=== PATIENT | male | born 1965 | race Caucasian/White ===

== ENCOUNTER 2020-07-11 12:06 | Outpatient (CLI) | payer BC, SELFPAY ==
[2020-07-11 12:35] LABS: Alanine Aminotransferase 46 U/L (4-50); Albumin Level 4.7 g/dL (3.5-5.1); Alkaline Phosphatase 68 U/L (38-126); Anion Gap 7 mmol/L (8-16); Aspartate Amino Transferase 40 U/L (17-59); Bilirubin,Total 1.5 mg/dL (0.2-1.3); Blood Urea Nitrogen 16 mg/dL (9-20); Calcium 9.5 mg/dL (8.4-10.2); Carbon Dioxide 31 mmol/L (22-30); Chloride 101 mmol/L (98-107); Cholesterol 230 mg/dL (0-200); Estimated Glomerular Filt Rate > 60; Glucose 96 mg/dL (75-110); HDL Direct 52 mg/dL; Potassium 4.1 mmol/L (3.4-5.0); Sodium 139 mmol/L (137-145); Triglycerides 147 mg/dL (<150)
[2020-07-11 12:47] LABS: LDL Cholesterol Direct 128 mg/dL
[2020-07-11 13:05] LABS: Prostate Specific Antigen 0.4 ng/mL (< OR = 4.0)
== END 2020-07-11 12:07 | disposition home or self-care (01) ==
LOC: ANHLAB 12:07
PROVIDERS: PCP Internal Medicine; Visit Provider Internal Medicine
DX: Z00.00 Encounter for general adult medical examination without abnormal findings (principal); E78.5 Hyperlipidemia, unspecified; Z12.5 Encounter for screening for malignant neoplasm of prostate
CPT/HCPCS: 36415; 80053; 80061; 84153; G0103

== ENCOUNTER 2020-07-26 14:57 | Outpatient (CLI) | payer BC, SELFPAY ==
--- NOTE | ~2020-07-26 | MR_ITS ---
EXAMINATION: MR lumbar spine wo con DATE: 07/26/2020 15:38 INDICATION: Lumbar radiculopathy. TECHNIQUE: Magnetic resonance imaging (MRI) of the lumbar spine was performed without intravenous con trast. Sequences included sagittal T2-weighted FSE, sagittal T2-weighted FS FSE, sagittal T1-weighted FSE, and axial T2-weighted FSE. COMPARISON: Lumbar spine MRI 02/17/2006 FINDINGS: There is 7 degrees levocurvature of lumbar spine. S1 is a transitional segment. Vertebral b mikayla heights are normal. There is mildly decreased disc height at L5-S1. The distal spinal cord signal intensity is normal. The conus medullaris is at L1. The following disc levels are specifically discu ssed: L1-L2: The disc does not extend beyond the endplate margin. There is no facet joint osteoarthritis. T here is no neural foraminal stenosis. There is no central canal stenosis. L2-L3: The disc does not extend beyond the endplate margin. There is no facet joint osteoarthritis. T here is no neural foraminal stenosis. There is no central canal stenosis. L3-L4: The disc is bulging. There is mild right facet joint osteoarthritis. There is mild bilateral n eural foraminal stenosis. There is mild central canal stenosis. L4-L5: The disc is bulging and has an annular fissure. There is mild bilateral facet joint osteoarthr itis. There is moderate bilateral neural foraminal stenosis. There is mild central canal stenosis. L5-S1: The disc is bulging and has an annular fissure. There is moderate right and severe left facet joint osteoarthritis. There is moderate bilateral neural foraminal stenosis. There is mild central ca nal stenosis. IMPRESSION: 1. Moderate lumbar spondylosis, slightly worsened from 02/17/2006. Reviewed, dictated and finalized at location B. CY SALES DEVELOPMENT ASSOCIATE
== END 2020-07-26 14:58 | disposition home or self-care (01) ==
PROVIDERS: PCP Internal Medicine; Visit Provider Internal Medicine
DX: M47.26 Other spondylosis with radiculopathy, lumbar region (principal)
CPT/HCPCS: 72148

== ENCOUNTER 2021-07-15 08:45 | Outpatient (CLI) | payer BC, SELFPAY ==
[2021-07-15 14:47] LABS: Alanine Aminotransferase 55 U/L (4-50); Albumin Level 4.6 g/dL (3.5-5.1); Alkaline Phosphatase 68 U/L (38-126); Anion Gap 8 mmol/L (8-16); Aspartate Amino Transferase 36 U/L (17-59); Blood Urea Nitrogen 15 mg/dL (9-20); Calcium 9.5 mg/dL (8.4-10.2); Carbon Dioxide 29 mmol/L (22-30); Chloride 102 mmol/L (98-107); Cholesterol 217 mg/dL (0-200); Estimated Glomerular Filt Rate > 60; Glucose 97 mg/dL (65-110); HDL Direct 47 mg/dL; Potassium 4.2 mmol/L (3.4-5.0); Sodium 139 mmol/L (137-145); Triglycerides 225 mg/dL (<150)
[2021-07-15 14:56] LABS: LDL Cholesterol Direct 120 mg/dL
[2021-07-15 15:12] LABS: Prostate Specific Antigen 0.7 ng/mL (< OR = 4.0)
== END 2021-07-15 08:46 | disposition home or self-care (01) ==
PROVIDERS: PCP Internal Medicine; Visit Provider Internal Medicine
DX: E78.5 Hyperlipidemia, unspecified (principal); Z12.5 Encounter for screening for malignant neoplasm of prostate
CPT/HCPCS: 36415; 80053; 80061; 84153; G0103

== ENCOUNTER 2021-10-30 12:44 | Outpatient (CLI) | payer BC, SELFPAY ==
--- NOTE | ~2021-10-30 | XR_ITS ---
EXAMINATION: XR lg joint inject/asp w image DATE: 10/30/2021 13:58 INDICATION: Left hip arthritis. TECHNIQUE: A time-out was performed to verify the patient's name, date of , and procedure to b e performed. The procedure including the risks, benefits, and alternatives was discussed with the pat ient. Risks discussed included bleeding and infection. The patient understood the risks and agreed to proceed. The skin overlying the left hip joint was prepped and draped in usual sterile fashion. An esthetic was administered with 1% lidocaine subcutaneously. A 22 G needle was advanced under fluoros copic guidance into the joint. Injection of 1 mL of Omnipaque 240 confirmed intra-articular position of the needle. Subsequently, injectate consisting of 2 mL 0.5% bupivacaine and 2 mL 40 mg/mL Depo-M edrol was instilled. The needle was removed and the entry site was cleaned and dressed. There were no immediate complications. Fluoroscopy exposure time was 0.0 minutes. The total number of images was 2. FINDINGS: Real-time fluoroscopy demonstrates the needle in the left hip joint. Patient's pain prior t o procedure:12/22. Patient's pain following the procedure: 10/24. IMPRESSION: 1. Fluoroscopy guided left hip joint injection of local anesthetic and steroid with decrease in the p atient's presenting pain. Reviewed, dictated and finalized at location A. OR ENVIRONMENTAL TECHNICIAN IMPRESSION: 1. Fluoroscopy guided left hip joint injection of local anesthetic and steroid with decrease in the patient's presenting pain.
== END 2021-10-30 12:45 | disposition home or self-care (01) ==
PROVIDERS: PCP Internal Medicine; Visit Provider Nurse Practitioner Family
DX: M16.12 Unilateral primary osteoarthritis, left hip (principal)
CPT/HCPCS: 20610; 77002; J1030; Q9966

== ENCOUNTER 2022-02-11 10:36 | Outpatient (CLI) | payer BC, SELFPAY ==
--- NOTE | ~2022-02-11 | XR_ITS ---
EXAMINATION: XR lg joint inject/asp w image DATE: 02/11/2022 11:25 INDICATION: Left hip arthritis. TECHNIQUE: A time-out was performed to verify the patient's name, date of , and procedure to b e performed. The procedure including the risks, benefits, and alternatives was discussed with the pat ient. Risks discussed included bleeding and infection. The patient understood the risks and agreed to proceed. The skin overlying the left hip joint was prepped and draped in usual sterile fashion. An esthetic was administered with 1% lidocaine subcutaneously. A 22 G needle was advanced under fluoros copic guidance into the joint. Subsequently, injectate consisting of 2 mL 0.5% bupivacaine and 1 mL 80 mg/mL Depo-Medrol was instilled. The needle was removed and the entry site was cleaned and dresse d. There were no immediate complications. Fluoroscopy exposure time was 0.1 minutes. The total numbe r of images was 1. FINDINGS: Real-time fluoroscopy demonstrates the needle in the left hip joint. Patient's pain prior t o procedure:11/21. Patient's pain following the procedure: 11/21. IMPRESSION: 1. Fluoroscopy guided left hip joint injection of local anesthetic and steroid. Reviewed, dictated and finalized at location A.
== END 2022-02-11 10:37 | disposition home or self-care (01) ==
LOC: ANHIMG 10:37
PROVIDERS: PCP Internal Medicine; Visit Provider Nurse Practitioner Family
DX: M16.12 Unilateral primary osteoarthritis, left hip (principal)
CPT/HCPCS: 20610; 77002; J1040

== ENCOUNTER 2022-04-30 12:42 | Outpatient (CLI) | payer BC, SELFPAY ==
--- NOTE | ~2022-04-30 | US_ITS ---
EXAMINATION:US venous doppler LE BI INDICATION:Acute pulmonary embolism. History of DVT. TECHNIQUE: Multiple grayscale, color flow and Doppler images of the right and left lower extremity de ep venous systems were obtained and reviewed. COMPARISON:No prior studies for comparison. FINDINGS: The common femoral, superficial femoral and popliteal veins demonstrate normal respiratory variation, augmentation and compressibility. Color flow is also seen within the posterior tibial, pe roneal, greater saphenous and profunda veins. IMPRESSION: 1: No lower extremity deep venous thrombosis. Reviewed, dictated and finalized at location B.
== END 2022-04-30 12:43 | disposition home or self-care (01) ==
LOC: ANHIMG 12:45
PROVIDERS: PCP Internal Medicine; Visit Provider Internal Medicine
DX: Z86.718 Personal history of other venous thrombosis and embolism (principal)
CPT/HCPCS: 93970

== ENCOUNTER 2022-07-22 07:24 | Outpatient (CLI) | payer BC, SELFPAY ==
[2022-07-22 07:49] LABS: Alanine Aminotransferase 57 U/L (6-50); Albumin Level 4.9 g/dL (3.5-5.1); Alkaline Phosphatase 80 U/L (38-126); Anion Gap 11 mmol/L (8-16); Aspartate Amino Transferase 41 U/L (17-59); Blood Urea Nitrogen 13 mg/dL (9-20); Calcium 9.1 mg/dL (8.4-10.2); Carbon Dioxide 28 mmol/L (22-30); Chloride 101 mmol/L (98-107); Cholesterol 217 mg/dL (0-200); Estimated Glomerular Filt Rate > 60; Glucose 98 mg/dL (65-110); HDL Direct 54 mg/dL; Sodium 140 mmol/L (137-145); Triglycerides 271 mg/dL (<150)
[2022-07-22 08:00] LABS: LDL Cholesterol Direct 106 mg/dL
[2022-07-22 08:19] LABS: Prostate Specific Antigen 0.6 ng/mL (< OR = 4.0)
== END 2022-07-22 07:25 | disposition home or self-care (01) ==
LOC: ANHLAB 07:26
PROVIDERS: PCP Internal Medicine; Visit Provider Internal Medicine
DX: Z00.00 Encounter for general adult medical examination without abnormal findings (principal); E78.5 Hyperlipidemia, unspecified; Z12.5 Encounter for screening for malignant neoplasm of prostate
CPT/HCPCS: 36415; 80053; 80061; 84153; G0103

== ENCOUNTER 2022-12-24 09:21 | Emergency (ER) | payer BC, SELFPAY ==
--- NOTE | ~2022-12-24 | XR_ITS ---
XR lumbar spine 2-3V 12/24/2022 11:34 Indication: Low back pain Procedure: 3 views lumbar spine Comparison: 05/22/2017 Findings: Vertebral body heights are maintained. There is a transitional L5 vertebra. There is mild d isc narrowing at L4-5. Pedicles intact. Sacral foramen are symmetric. There are small marginal osteop hytes. No evidence for spondylolisthesis. Impression: 1: Stable mild lumbar spondylosis. Reviewed, dictated and finalized at location B. Impression: 1: Stable mild lumbar spondylosis.
[2022-12-24 09:47] VITALS: BP 143/88; PULSE 73; RESP 16; TEMP 37; O2SAT 99
--- NOTE | 2022-12-24 12:23 | ED.BACK ---
HPI - Back Pain/Injury General Chief Complaint: Back Pain/Injury Stated Complaint: back pain Time Seen by Provider: 12/24/22 11:03 History of Present Illness HPI Narrative: Patient is a 57-year-old male who presents ER with low back pain. Reports 6 days ago he was loading a car when he felt a sudden pain in his right low back. He has been taking ibuprofen 800 mg to help his discomfort but has not yet gone away. No lower extremity numbness or weakness. No difficulty with urination/defecation. No fevers or chills or sweats. No additional concerns at this time. Related Data Home Medications Medication Instructions Recorded Confirmed ibuprofen 800 mg tablet 800 mg PO TID 12/24/22 Allergies Allergy/AdvReac Type Severity Reaction Status Date / Time No Known Allergies Allergy Mild Verified 12/24/22 11:14 Review of Systems Review of Systems: All systems reviewed & are unremarkable except as noted in HPI and below Constitutional: Constitutional: Denies chills and Denies fever(s) Cardiovascular: Cardiovascular: Denies chest pain, Denies radiating jaw, neck or arm pain and Denies slow heart rate Gastrointestinal: Gastrointestinal: Denies abdominal pain, Denies nausea and Denies vomiting Comments: No fecal incontinence Genitourinary: Genitourinary: Denies urinary frequency and Denies urinary incontinence Musculoskeletal: Musculoskeletal: Reports back pain, Denies arthralgias and Denies joint swelling Neurologic: Denies focal weakness and Denies numbness PMFSH Past Medical History Medical History Benign prostatic hyperplasia without lower urinary tract symptoms Chronic left hip pain Chronic midline low back pain Clotting disorder COVID-19 Degenerative joint disease (DJD) of hip Encounter for preventative adult health care examination Essential (primary) hypertension Hip impingement syndrome Left knee pain Lumbar radiculopathy Other hyperlipidemia Pneumonia due to COVID-19 virus Sleep apnea, unspecified Surgical History Surgical History History of back surgery History of cholecystectomy Family History Family History Mother Patient's mother is in good health Father Patient's father is in good health Heart disease Sibling Patient's sister is in good health Grandparent Carcinoma of colon, Onset Age: 83 Social History Social History (Updated 08/06/22 @ 13:09 by Colette Marks MA) Smoking packs per day: 1 Smoking cigarettes per day: 20.0 Years smoked: 20 Smoking pack-years: 20.00 Smoking status: Former smoker Second hand tobacco smoke exposure: No Alcohol intake: current Alcohol use details: social Substance use: never Substance use type: does not use Lack of Transportation: No Lack of Food: Never True Current Housing: I Have Housing Concerned About Future Housing: No Difficulty Paying Gas/Electric Bills: No Difficulty Paying for Meds: No Currently Unemployed: No Education: Trade/Vocational Certificate Difficulty w/ Childcare or Family Care: No Exam Narrative: GENERAL: Well-appearing, well-nourished, and in no acute distress. HEAD: Normocephalic, atraumatic. CHEST: Clear to auscultation. No respiratory distress. HEART: Regular rate and rhythm. No murmur heard. Normal peripheral pulses. Back: No reproducible midline T/L-spine tenderness. There is mild right-sided paraspinal muscular tenderness at L4 without palpable spasm. EXTREMITIES: Normal range of motion. No edema. Ambulates without difficulty. SKIN: Warm, dry, no rash. NEURO: Alert and oriented x3. PSYCH: Normal mood and affect. Course Course Emergency Course: Patient resting comfortably. Informed of imaging results. Discussed continued treatment with NSAIDs at home and we will add on muscle relaxers. [place]
== END 2022-12-24 12:32 | disposition home or self-care (01) ==
PROVIDERS: Emergency Provider Emergency Medicine; PCP Nurse Practitioner
DX: S39.012A Strain of muscle, fascia and tendon of lower back, initial encounter (principal); N40.0 Benign prostatic hyperplasia without lower urinary tract symptoms; I10 Essential (primary) hypertension; G47.30 Sleep apnea, unspecified; M16.9 Osteoarthritis of hip, unspecified; Z87.01 Personal history of pneumonia (recurrent); Z86.16 Personal history of COVID-19; Z90.49 Acquired absence of other specified parts of digestive tract; X50.0XXA Overexertion from strenuous movement or load, initial encounter
CPT/HCPCS: 72100; 99283

== ENCOUNTER 2023-01-09 08:49 | Outpatient (CLI) | payer BC, SELFPAY ==
[2023-01-09 09:27] LABS: Cholesterol 187 mg/dL (0-200); HDL Direct 51 mg/dL; Triglycerides 94 mg/dL (<150)
[2023-01-09 09:37] LABS: LDL Cholesterol Direct 100 mg/dL
== END 2023-01-09 08:50 | disposition home or self-care (01) ==
PROVIDERS: PCP Nurse Practitioner; Visit Provider Nurse Practitioner
DX: E78.5 Hyperlipidemia, unspecified (principal)
CPT/HCPCS: 36415; 80061

== ENCOUNTER 2023-07-08 07:34 | Outpatient (CLI) | payer BC, SELFPAY ==
[2023-07-08 08:03] LABS: Hematocrit 43.9 % (42.0-52.0); Hemoglobin 14.7 g/dL (14.0-18.0); Mean Corpuscular HGB Conc 33.5 g/dl (32-36); Mean Corpuscular Hemoglobin 31.3 pg (26-34); Mean Corpuscular Volume 93.6 fl (80-100); Mean Platelet Volume 9.1 fl (7.4-10.4); Platelet Count Result 271 k/mm3 (150-375); Red Blood Count 4.69 M/mm3 (4.6-6.20); Red Cell Distribution Width 12.6 % (11.5-14.5)
[2023-07-08 08:18] LABS: Alanine Aminotransferase 35 U/L (6-50); Albumin Level 4.5 g/dL (3.5-5.1); Alkaline Phosphatase 72 U/L (38-126); Anion Gap 4 mmol/L (8-16); Aspartate Amino Transferase 27 U/L (17-59); Blood Urea Nitrogen 17 mg/dL (9-20); Calcium 9.1 mg/dL (8.4-10.2); Carbon Dioxide 29 mmol/L (22-30); Chloride 104 mmol/L (98-107); Cholesterol 183 mg/dL (0-200); Estimated Glomerular Filt Rate > 60; Glucose 93 mg/dL (65-110); HDL Direct 48 mg/dL; Potassium 4.2 mmol/L (3.4-5.0); Sodium 137 mmol/L (137-145); Triglycerides 138 mg/dL (<150)
[2023-07-08 08:25] LABS: LDL Cholesterol Direct 101 mg/dL
[2023-07-08 08:43] LABS: Prostate Specific Antigen 0.5 ng/mL (< OR = 4.0)
== END 2023-07-08 07:35 | disposition home or self-care (01) ==
LOC: ANHLAB 07:35
PROVIDERS: PCP Nurse Practitioner; Visit Provider Nurse Practitioner
DX: Z00.00 Encounter for general adult medical examination without abnormal findings (principal); Z12.5 Encounter for screening for malignant neoplasm of prostate
CPT/HCPCS: 36415; 80053; 80061; 84153; 85027; G0103

== ENCOUNTER 2024-11-13 09:21 | Emergency (ER) | payer BC, SELFPAY ==
[2024-11-13 09:28] VITALS: BP 143/87; PULSE 67; RESP 18; TEMP 36.4; O2SAT 98
[2024-11-13 11:13] VITALS: BP 121/86; PULSE 64; RESP 19; O2SAT 100
--- NOTE | 2024-11-13 11:31 | ED.BACK ---
HPI - Back Pain/Injury General Chief Complaint: Back Pain/Injury Stated Complaint: LOWER BACK PAIN Time Seen by Provider: 11/13/24 11:04 Source: patient Mode of arrival: ambulatory Limitations: no limitations History of Present Illness HPI Narrative: 59 years old white male came to the ED with his by private car complaining of lower back pain started 5 days ago 1 day after trying to adjust backyard hose, and working at the backyard including lifting and pushing, 1 week prior to that patient was shoveling a lot of snow. Patient report the pain is sharp, stabbing, no radiation, no focal neuro deficit. Worse with certain movement and position, better laying down on 1 side of his body. He denies any fever, chills, nausea, vomiting Related Data Home Medications ?Medication ?Instructions ?Recorded ?Confirmed ?Last Taken ?Type ibuprofen 800 mg tablet 800 mg PO TID 12/24/22 11/13/24 Unknown History cyclobenzaprine 10 mg tablet 10 mg PO ONCE back pain 11/13/24 11/13/24 11/13/24 History Allergies Allergy/AdvReac Type Severity Reaction Status Date / Time No Known Allergies Allergy Mild Verified 11/13/24 09:29 Review of Systems Review of Systems: All systems reviewed & are unremarkable except as noted in HPI and below PMFSH Past Medical History Medical History Clotting disorder Degenerative joint disease (DJD) of hip Hip impingement syndrome Pneumonia due to COVID-19 virus COVID-19 Left knee pain Chronic left hip pain Lumbar radiculopathy Benign prostatic hyperplasia without lower urinary tract symptoms Chronic midline low back pain Essential (primary) hypertension Other hyperlipidemia Sleep apnea, unspecified Encounter for preventative adult health care examination Surgical History Surgical History History of back surgery History of cholecystectomy Family History Family History Mother Patient's mother is in good health Father Patient's father is in good health Heart disease Sibling Patient's sister is in good health Grandparent Carcinoma of colon, Onset Age: 83 Social History Social History Social History: Caffeine- daily Smoking packs per day: 1 Smoking cigarettes per day: 20.0 Years smoked: 20 Smoking pack-years: 20.00 Smoking status: Former smoker Second hand tobacco smoke exposure: No Smoking end date: 09/14/05 Alcohol intake: current Alcohol use details: social Substance use: never Substance use type: does not use Lack of Transportation: No Lack of Food: Never True Current Housing: I Have Housing Concerned About Future Housing: No Difficulty Paying Gas/Electric Bills: No Difficulty Paying for Meds: No Currently Unemployed: No Education: Trade/Vocational Certificate Difficulty w/ Childcare or Family Care: No Exam Narrative: General appearance: Well-developed, well-nourished Skin: Normal color Head: Normocephalic, nontraumatic Eyes: Clear conjunctiva ENT: Oropharynx normal, ears normal, nose normal Neck: Supple, nontender Chest and respiratory: Airway patent, no respiratory distress, no accessory muscle use Heart: Regular rate/rhythm Abdomen: Soft, nontender, no organomegaly, quiet bowel sounds Vascular: Normal peripheral pulses, normal capillary refill. Musculoskeletal: Slight tenderness across lumbar area, no bruises no swelling no rash, limited range of motion Neurologic: Alert and oriented ?3, ACCELERATOR TECHNICIAN is normal as tested, no gross motor deficit Course Vital Signs Vital signs: Vital Signs Temperature 36.4 C L 11/13/24 09:28 Pulse Rate 67 11/13/24 09:28 Respiratory Rate 18 11/13/24 09:28 Blood Pressure 143/87 H 11/13/24 09:28 Pulse Oximetry 98 11/13/24 09:28 Oxygen Delivery Room Air 11/13/24 09:28 Temperature 36.4 C L 11/13/24 09:28 Pulse Rate 64 11/13/24 11:13 Respiratory Rate 19 11/13/24 11:13 Blood Pressure 121/86 11/13/24 11:13 Pulse Oximetry 100 11/13/24 11:13 Oxygen Delivery Room Air 11/13/24 09:28 MDM - Back Pain/Injury MDM Narrative Medical decision making narrative: Patient presents with lower back pain status post new physical activities few days prior to that. Vital signs are stable Physical examination consistent with tenderness and limited range of motion at the lumbar area Differential diagnosis musculoskeletal strain/sprain Discharged on anti-inflammatory, muscle relaxant,. Differential Diagnosis Differential diagnosis: Likely other (As above) Critical Care Time Critical Care Time Critical Care Time: No Discharge Plan Discharge Clinical Impression: Lower back pain Patient Disposition: Home, Self-Care Condition: Stable Instructions: Acute Low Back Pain (ED) Additional Instructions: Return if symptoms are worsening , call your family physician for appointment, take Tylenol as as needed for aches and pain, continue home medications. Massage Heating pad Lower back exercise Patient Language: Tajik Prescriptions: New cyclobenzaprine 10 mg tablet 10 mg PO TID PRN (Reason: muscle spasm) Qty: 20 0RF naproxen [Naprosyn] 500 mg tablet 500 mg PO BID PRN (Reason: pain) Qty: 14 0RF No Action ibuprofen 800 mg Tablet 800 mg PO TID cyclobenzaprine 10 mg tablet 10 mg PO ONCE Follow-up/Referrals: Calos Strauss APRN [Primary Care Provider] -
[2024-11-13] MEDS: KETOROLAC (*BKC) 60 MG/2 ML VIAL IM (11:46)
[2024-11-13] MEDS: HYDROcodone/acetaminophen (*CRX) 5-325 MG TABLET 1 TAB PO (11:47)
[2024-11-13] MEDS: diazePAM (*CRX) 5 MG TABLET PO (11:47)
[2024-11-13 11:56] VITALS: BP 131/84; PULSE 70; RESP 19; O2SAT 100
== END 2024-11-13 11:58 | disposition home or self-care (01) ==
PROVIDERS: Emergency Provider Emergency Medicine; PCP Nurse Practitioner
DX: M54.50 Low back pain, unspecified (principal); I10 Essential (primary) hypertension; E78.49 Other hyperlipidemia; N40.0 Benign prostatic hyperplasia without lower urinary tract symptoms; G47.30 Sleep apnea, unspecified; M16.9 Osteoarthritis of hip, unspecified; D68.9 Coagulation defect, unspecified; Z86.16 Personal history of COVID-19; Z87.01 Personal history of pneumonia (recurrent); Z87.891 Personal history of nicotine dependence; Z90.49 Acquired absence of other specified parts of digestive tract
CPT/HCPCS: 96372; 99283; A9270; J1885

== ENCOUNTER 2024-12-17 07:36 | Outpatient (CLI) | payer BC, SELFPAY ==
--- OUTSIDE RECORDS SUMMARY | 2024-12-17 07:42 | XMS_ITS | Clinical Summary ---
Author Organization [facility] Address [facility] [place] [address] Care Team Providers Care Gas Pumping Station Supervisor Name Role Phone Deepak De Leon DO Primary Care Provider [phone] Allergies No known active allergies Medications apixaban 5 MG tablet Take 1 tablet (5 mg total) by mouth 2 (two) times daily. 60 tablet 1 2 Active albuterol sulfate HFA 108 (90 Base) MCG/ACT inhaler Inhale 2 puffs into the lungs every 4 (four) hours as needed for Shortness of breath. 18 g 2 Active dexamethasone 2 MG tablet 3 tablets for 3 days, 2 tablets for 3 days and 1 tablets for 3 days. 18 tablet 2 Active Active Problems Problem Noted Date Diagnosed Date Physical deconditioning 09/28/2021 COVID-19 09/19/2021 Family History Medical History Relation Comments Heart Disease Father Relation Status Comments Father Mother Alive Sister Alive Social History Tobacco Use Types Packs/Day Years Used Date Smoking Tobacco: Former Cigarettes 1 25 0 09/19/1980 - 09/19/2005 Smokeless Tobacco: Never Alcohol Use Standard Drinks/Week Comments Yes 0 (1 standard drink = 0.6 oz pur e alcohol) Twelve pack annually Education Answer Date Recorded What is the highest level of school you have completed or the highest degree you have received? Some college, no degree 09/19/2021 Sex and Gender Information Value Date Recorded Sex Assigned at Not on file Legal Sex Male 8:10 PM CDT Gender Identity Not on file Sexual Orientation Not on file Last Filed Vital Signs Vital Sign Reading Time Taken Comments Blood Pressure 114/68 09/29/2021 8:17 AM BILLING ASSOCIATE Pulse 76 09/29/2021 8:17 AM BILLING ASSOCIATE Temperature 36.7 C (98.1 F) 09/29/2021 8:17 AM BILLING ASSOCIATE Respiratory Rate 18 09/29/2021 8:17 AM BILLING ASSOCIATE Oxygen Saturation 93% 09/29/2021 8:17 AM BILLING ASSOCIATE Inhaled Oxygen Concentration - - Weight 77.4 kg (170 lb 10.2 oz) 09/29/2021 5:00 AM BILLING ASSOCIATE Height 165.1 cm (5' 5 ) 09/27/2021 3:50 PM BILLING ASSOCIATE Body Mass Index 28.4 09/27/2021 3:50 PM BILLING ASSOCIATE Plan of Treatment Health Maintenance Due Date Last Done Comments Colorectal Cancer Screening Colonoscopy (10 Years) 1964 Annual Physical 1967 Hepatitis C 1982 Zoster Vaccines (1 of 2) 2014 DTaP, Tdap and Td Vaccines ( 2 - Td or Tdap) 07/05/2022 07/05/2012 COVID-19 Vaccine ( - 2023-2 5 season) 2024 Influenza Adult (#1) 2024 RSV Immunization or 60+ Years (1 - 1-dose 75+ series) 2039 Meningococcal B Vaccine Aged Out No l onger eligible based on patient's age to complete this topic Meningococcal Vaccine Aged Out No anthony linda eligible based on patient's age to complete this topic Pneumococcal Vaccine: Pediat rics (0 to 5 Years) and At-Risk Patients (6 to 64 Years) Aged Out No longer eligi ble based on patient's age to complete this topic RSV Immunizations Under 20 Months Aged Out No longer eligible based on patient's age to complete this topic Goals Goal Patient Goal Type Associated Problems Recent Progress Patient-Stated? Author Health - patient able to perform ADLs independently General No Jennifer Cesar, RN Insurance [facility] Advance Directives * Full Code (Latest Code Status on File) Date Activated Date Inactivated Comments 09/27/2021 3:49 PM 09/29/2021 8:59 PM * Full Code Date Activated Date Inactivated Comments 09/19/2021 3:31 PM 09/27/2021 3:47 PM Care Teams Gas Pumping Station Supervisor Relationship Specialty Start Date End Date Deepak De Leon DO [address] [place] [id number] PCP - General INTERNAL MEDICINE 09/19/21
[2024-12-17 08:13] LABS: Hematocrit 44.7 % (42.0-52.0); Hemoglobin 15.1 g/dL (14.0-18.0); Mean Corpuscular HGB Conc 33.8 g/dl (32-36); Mean Corpuscular Hemoglobin 31.1 pg (26-34); Mean Corpuscular Volume 92.2 fl (80-100); Platelet Count Result 273 k/mm3 (150-375); Red Blood Count 4.85 M/mm3 (4.6-6.20); Red Cell Distribution Width 12.6 % (11.5-14.5)
[2024-12-17 08:22] LABS: Alanine Aminotransferase 34 U/L (6-50); Albumin Level 4.7 g/dL (3.5-5.1); Alkaline Phosphatase 79 U/L (38-126); Anion Gap 6 mmol/L (4-12); Aspartate Amino Transferase 24 U/L (17-59); Bilirubin,Total 1.2 mg/dL (0.2-1.3); Blood Urea Nitrogen 14 mg/dL (9-20); Calcium 9.2 mg/dL (8.4-10.2); Carbon Dioxide 31 mmol/L (22-30); Chloride 103 mmol/L (98-107); Cholesterol 177 mg/dL (0-200); Estimated Glomerular Filt Rate > 60; Glucose 97 mg/dL (65-110); HDL Direct 54 mg/dL; Sodium 140 mmol/L (137-145); Triglycerides 164 mg/dL (<150)
[2024-12-17 08:34] LABS: LDL Cholesterol Direct 80 mg/dL
[2024-12-17 08:54] LABS: Prostate Specific Antigen 0.5 ng/mL (< OR = 4.0)
== END 2024-12-17 07:37 | disposition home or self-care (01) ==
LOC: ANHLAB 07:40
PROVIDERS: PCP Internal Medicine; Visit Provider Nurse Practitioner
DX: Z00.00 Encounter for general adult medical examination without abnormal findings (principal); E78.5 Hyperlipidemia, unspecified; Z12.5 Encounter for screening for malignant neoplasm of prostate; I10 Essential (primary) hypertension
CPT/HCPCS: 36415; 80053; 80061; 84153; 84443; 85027; G0103

== ENCOUNTER 2025-01-13 13:27 | Outpatient (CLI) | payer BC, SELFPAY ==
--- NOTE | ~2025-01-13 | XR_ITS ---
Lumbosacral Spine: AP and lateral views Clinical History: Pain COMPARISON: 12/24/2022 Findings: The normal lordotic curve is maintained. No fracture or subluxation. Mild degenerative disc changes are present. Moderate facet arthropathy present from L4 through S1. The sacroiliac joints ar e normally outlined. Impression: Degenerative spondylosis, similar to prior exam, moderate in degree from L4 through S1. Reviewed, dictated and finalized at location M. Impression: Degenerative spondylosis, similar to prior exam, moderate in degree from L4 thr ough S1.
--- OUTSIDE RECORDS SUMMARY | 2025-01-14 13:56 | XMS_ITS | Clinical Summary ---
Author Organization [facility] Address [facility] [place] [address] Care Team Providers Care Game Artist Name Role Phone Deepak De Leon DO Primary Care Provider [phone] Allergies No known active allergies Medications apixaban [...] Comments Blood Pressure 114/68 09/29/2021 8:17 AM TRAVEL CLERK Pulse 76 09/29/2021 8:17 AM TRAVEL CLERK Temperature 36.7 C (98.1 F) 09/29/2021 8:17 AM TRAVEL CLERK Respiratory Rate 18 09/29/2021 8:17 AM TRAVEL CLERK Oxygen Saturation 93% 09/29/2021 8:17 AM TRAVEL CLERK Inhaled Oxygen Concentration - - Weight 77.4 kg (170 lb 10.2 oz) 09/29/2021 5:00 AM TRAVEL CLERK Height 165.1 cm (5' 5 ) 09/27/2021 3:50 PM TRAVEL CLERK Body Mass Index 28.4 09/27/2021 3:50 PM TRAVEL CLERK Plan of Treatment Health Maintenance Due Date Last Done Comments Colorectal Cancer Screening Colonoscopy (10 Years) 1964 Annual Physical 1967 Hepatitis C 1982 Pneumococcal Vaccine: 50+ Ye ars (1 of 1 - PCV) 2014 Zoster Vaccines (1 of 2) 2014 DTaP, Tdap and Td Vaccines ( 2 - Td or Tdap) 07/05/2022 07/05/2012 COVID-19 Vaccine (1 - 2023-2 5 season) 2024 RSV Immunization or 60+ Years (1 [...] independently General No Jennifer Cesar, RN Insurance [facility] Advance Directives * Full Code (Latest Code Status on File) Date Activated Date Inactivated Comments 09/27/2021 3:49 PM 09/29/2021 8:59 PM * Full Code Date Activated Date Inactivated Comments 09/19/2021 3:31 PM 09/27/2021 3:47 PM Care Teams Game Artist Relationship Specialty Start Date End Date Deepak De Leon DO [address] [place] [address] PCP - General INTERNAL MEDICINE 09/19/21
== END 2025-01-13 13:28 | disposition home or self-care (01) ==
PROVIDERS: PCP Internal Medicine; Visit Provider Internal Medicine
DX: M47.26 Other spondylosis with radiculopathy, lumbar region (principal)
CPT/HCPCS: 72100

== ENCOUNTER 2025-01-25 12:51 | Outpatient (CLI) | payer BC, SELFPAY ==
--- NOTE | ~2025-01-25 | XR_ITS ---
XR ankle RT 2V Ordering provider: Deepak De Leon DO History: . R52 - Pain, unspecified . Comparison: None. FINDINGS: BONES: No acute fracture or dislocation. JOINT SPACES: Normal. SOFT TISSUES: Normal. Ossification of the insertion of the tendo Achilles. Calcaneal spur. IMPRESSION: No acute osseous abnormality of the right ankle. Reviewed, dictated and finalized at location A.
--- NOTE | ~2025-01-25 | XR_ITS ---
XR tibia fibula RT 2V Ordering provider: Deepak De Leon DO History: . R52 - Pain, unspecified . Comparison: None. FINDINGS: BONES: No acute fracture or dislocation. JOINT SPACES: Normal. SOFT TISSUES: Normal. IMPRESSION: No acute osseous abnormality right leg. Reviewed, dictated and finalized at location A.
--- OUTSIDE RECORDS SUMMARY | 2025-01-25 13:00 | XMS_ITS | Clinical Summary ---
Author Organization [facility] Address [facility] [place] [address] Care Team Providers Care Food Product Inspector Name Role Phone Deepak De Leon DO Primary Care Provider [phone] Allergies No known active allergies Medications apixaban [...] Comments Blood Pressure 114/68 09/29/2021 8:17 AM BUFFER OPERATOR Pulse 76 09/29/2021 8:17 AM BUFFER OPERATOR Temperature 36.7 C (98.1 F) 09/29/2021 8:17 AM BUFFER OPERATOR Respiratory Rate 18 09/29/2021 8:17 AM BUFFER OPERATOR Oxygen Saturation 93% 09/29/2021 8:17 AM BUFFER OPERATOR Inhaled Oxygen Concentration - - Weight 77.4 kg (170 lb 10.2 oz) 09/29/2021 5:00 AM BUFFER OPERATOR Height 165.1 cm (5' 5 ) 09/27/2021 3:50 PM BUFFER OPERATOR Body Mass Index 28.4 09/27/2021 3:50 PM BUFFER OPERATOR Plan of Treatment Health Maintenance Due Date [...] independently General No Jennifer Cesar, RN Insurance [facility] Advance Directives * Full Code (Latest Code Status on File) Date Activated Date Inactivated Comments 09/27/2021 3:49 PM 09/29/2021 8:59 PM * Full Code Date Activated Date Inactivated Comments 09/19/2021 3:31 PM 09/27/2021 3:47 PM Care Teams Food Product Inspector Relationship Specialty Start Date End Date Deepak De Leon DO [address] [place] [address] PCP - General INTERNAL MEDICINE 09/19/21
== END 2025-01-25 12:52 | disposition home or self-care (01) ==
PROVIDERS: PCP Internal Medicine; Visit Provider Internal Medicine
DX: R52 Pain, unspecified (principal)
CPT/HCPCS: 73590; 73600

== ENCOUNTER 2025-02-02 08:55 | Outpatient (CLI) | payer BC, SELFPAY ==
--- NOTE | ~2025-02-02 | MR_ITS ---
MRI of the lumbar spine Clinical History: Radiculopathy Technique: Axial T2-weighted images, and sagittal T1-weighted, T2-weighted, and T2 fat-sat images wer e acquired. COMPARISON: 07/26/2020 Findings: There is no fracture or subluxation of the lumbar spine. Vertebral bodies maintain normal h eight and line. No suspicious bone marrow signal abnormality seen. At L1-L2, there is no disc bulge or herniation. No spinal canal stenosis or neural foraminal narrowin g. At L2-L3, there is minimal disc bulge with moderate facet arthropathy. No central canal stenosis or d efinite neural foraminal narrowing. At L3-L4, there is diffuse disc bulge with superimposed right paracentral disc extrusion. There is mo derate to advanced facet arthropathy. There is moderate to severe spinal canal stenosis, with right l ateral recess stenosis in particular related to the disc extrusion and probable impingement of the de scending right-sided L4-L5 nerve root. There is severe left neural foraminal narrowing, and moderate right neural foraminal narrowing. At L4-L5, there is mild disc bulge with moderate to advanced facet arthropathy. No central canal sten osis. There is severe bilateral neural foraminal narrowing. At L5-S1, there is no disc bulge or herniation. No spinal canal stenosis or definite neural foraminal narrowing. Paravertebral soft tissues are unremarkable. Impression: Right paracentral disc extrusion/herniation at L3-L4, which probably impinges the descending right-si ded L4-L5 nerve root and results in right lateral recess stenosis at this level. There is also modera te to advanced central canal stenosis at this level. Bilateral neural foraminal narrowing at L3-L4 and L4-L5, as detailed above. Reviewed, dictated and finalized at location M. Impression: Right paracentral disc extrusion/herniation at L3-L4, which probably impinges t he descending right-sided L4-L5 nerve root and results in right lateral recess stenosis at this level. There is also moderate to advanced central canal stenos is at this level. Bilateral neural foraminal narrowing at L3-L4 and L4-L5, as detailed above.
== END 2025-02-02 08:56 | disposition home or self-care (01) ==
LOC: GOSHIMG 08:55
PROVIDERS: PCP Internal Medicine; Visit Provider Internal Medicine
DX: M51.26 Other intervertebral disc displacement, lumbar region (principal); M48.061 Spinal stenosis, lumbar region without neurogenic claudication
CPT/HCPCS: 72148

== ENCOUNTER 2025-03-14 09:58 | Outpatient (CLI) | payer BC, SELFPAY ==
--- OUTSIDE RECORDS SUMMARY | 2025-03-14 10:11 | XMS_ITS | Clinical Summary ---
Author Organization [facility] Address [facility] [place] [address] Care Team Providers Care Production Editor Name Role Phone Deepak De Leon DO Primary Care Provider Allergies No known active allergies Medications apixaban [...] Comments Blood Pressure 114/68 09/29/2021 8:17 AM INCOME TAX RETURN PREPARER Pulse 76 09/29/2021 8:17 AM INCOME TAX RETURN PREPARER Temperature 36.7 C (98.1 F) 09/29/2021 8:17 AM INCOME TAX RETURN PREPARER Respiratory Rate 18 09/29/2021 8:17 AM INCOME TAX RETURN PREPARER Oxygen Saturation 93% 09/29/2021 8:17 AM INCOME TAX RETURN PREPARER Inhaled Oxygen Concentration - - Weight 77.4 kg (170 lb 10.2 oz) 09/29/2021 5:00 AM INCOME TAX RETURN PREPARER Height 165.1 cm (5' 5) 09/27/2021 3:50 PM INCOME TAX RETURN PREPARER Body Mass Index 28.4 09/27/2021 3:50 PM INCOME TAX RETURN PREPARER Plan of Treatment Health Maintenance Due Date [...] independently General No Jennifer Cesar, RN Insurance [facility] Advance Directives * Full Code (Latest Code Status on File) Date Activated Date Inactivated Comments 09/27/2021 3:49 PM 09/29/2021 8:59 PM * Full Code Date Activated Date Inactivated Comments 09/19/2021 3:31 PM 09/27/2021 3:47 PM Care Teams Production Editor Relationship Specialty Start Date End Date Deepak De Leon DO [address] [place] [address] PCP - General INTERNAL MEDICINE 09/19/21
[2025-03-14 10:56] LABS: Hematocrit 44.7 % (42.0-52.0); Hemoglobin 14.9 g/dL (14.0-18.0); Mean Corpuscular HGB Conc 33.3 g/dl (32-36); Mean Corpuscular Hemoglobin 31.0 pg (26-34); Mean Corpuscular Volume 93.1 fl (80-100); Platelet Count Result 258 k/mm3 (150-375); Red Blood Count 4.80 M/mm3 (4.6-6.20); White Blood Count 8.6 K/mm3 (4.5-10.0)
[2025-03-14 11:07] LABS: Add Urine Microscopic? YES; Anion Gap 9 mmol/L (4-12); Appearance Urine Clear (Clear); Blood Urea Nitrogen 15 mg/dL (9-20); Calcium 9.6 mg/dL (8.4-10.2); Carbon Dioxide 26 mmol/L (22-30); Chloride 105 mmol/L (98-107); Estimated Glomerular Filt Rate > 60; Glucose 95 mg/dL (65-110); Glucose Urine UA Negative (Negative); Leukocyte Esterase Ur Trace LEU/UL (Negative); Nitrate Urine Negative (Negative); Non Pathogenic Casts 0-2; Potassium 4.4 mmol/L (3.4-5.0); Sodium 140 mmol/L (137-145); Specific Grav Ur 1.006 (1.001-1.035)
[2025-03-14 11:11] LABS: INR 0.9; Prothrombin Time 12.8 Seconds (11.1-14.7)
[2025-03-14 11:12] LABS: Partial Thromboplastin Time 28.1 Seconds (22.3-36.8)
== END 2025-03-14 09:59 | disposition home or self-care (01) ==
LOC: ANHSURGERY 10:02
PROVIDERS: PCP Internal Medicine; Visit Provider Neurological Surgery
DX: M51.26 Other intervertebral disc displacement, lumbar region (principal); Z01.818 Encounter for other preprocedural examination
CPT/HCPCS: 36415; 80048; 81001; 85027; 85610; 85730

== ENCOUNTER 2025-03-31 00:53 | Day surgery (SDC) | payer BC, SELFPAY ==
[2025-03-14 10:09] VITALS: BP 143/92; PULSE 69; RESP 14; TEMP 37.1; O2SAT 99; BMI 30.9
[2025-03-14 10:23] VITALS: BP 129/87
--- NOTE | 2025-03-14 10:25 | PC.NURSE ---
Report to the Outpatient Waiting Room, entrance under the green pavilion located off [facility], at time _10:00am on date __03/31/25 . Planned Procedure Time: ____12:00pm ____.? Time changes happen often and if your time is changed the preop area will call you the afternoon before. - You and your visitor will be asked to self-screen and do not enter if you have any COVID symptoms. Please call surgeon if you need to reschedule. - A mask is optional within the hospital at this time. Patients may have clear liquids (water, carbonated beverages, clear teas, apple juice) until 3 hours prior to surgery with a maximum of 20 ounces. - No food from midnight until time of surgery and no smoking, or chewing tobacco (or any form of nicotine). No chewing gum, candy or mints. (09:00am) Take only the following medications with a SIP of water on the morning of surgery: ____Hydrocodone if needed DO NOT STOP ANY OF YOUR OTHER PRESCRIPTION MEDICATIONS PRIOR TO SURGERY EXCEPT THE FOLLOWING Hold all vitamins and supplements for 3 days per anesthesiologist. Medications to discontinue per physician NONE Date to take last dose__NONE Please no make-up, nail indonesian, hairspray, perfume, deodorant, or body powder the day of surgery.? No jewelry (including any body piercings) or valuables the day of surgery, leave them at home.? Please take a shower or bath the night before, or the morning of, surgery with an antibacterial soap.? Wear comfortable, loose fitting clothing.? - Jewelry must be removed prior to entering the operating room.? Rings and piercings that are not removed may be cut off. - The hospital will not accept responsibility for valuables.? - Please leave all valuables, including medications, at home the day of surgery. If you are going home after surgery, a licensed wheelchair driver must drive you home.? - NO public transportation without another adult if you receive anesthesia. - We recommend that an adult stay with you for 24 hours following discharge. - We also recommend that you do not drive, make important decision, drink alcoholic beverages, or take any drugs that were not prescribed by your health care provider for at least 24 hours after your discharge time. Follow any additional instructions given to you from your surgeon. Telephone instructions given to ___Patient and asked if any additional questions and then verbalized understanding. Patient advised to call surgeon office or pre surgery nurse liaison [phone] if any additional questions.
[2025-03-31] VITALS (7 sets, daily range): BP systolic 98–138; BP diastolic 50–89; PULSE 62–76; RESP 13–18; TEMP 36.4; O2SAT 97–100
--- NOTE | ~2025-03-31 | XR_ITS ---
EXAMINATION: XR fluoroscopy no charge DATE: 03/31/2025 12:00 CDT INDICATION: RIGHT L3-4 MICRODISCECTOMY . TECHNIQUE: 2 fluoroscopic images of the lumbar spine were obtained during right L3-4 microdiscectomy. Fluoroscopy exposure time was 7.4 seconds. Air Kerma 5.0475 mGy. DAP 1.0006 mGym2. COMPARISON: MR L-spine 02/02/2025; x-ray L-spine 02-05 FINDINGS/IMPRESSION: Fluoroscopic documentation of right L3-4 microdiscectomy. Please refer to the operative note for comp lete procedural details. Reviewed, dictated and finalized at location K.
--- OUTSIDE RECORDS SUMMARY | 2025-03-31 00:56 | XMS_ITS | Clinical Summary ---
Author Organization [facility] Address [facility] [place] [address] Care Team Providers Care City Director Name Role Phone Deepak De Leon DO Primary Care Provider [phone] Allergies No known active allergies Medications apixaban [...] Comments Blood Pressure 114/68 09/29/2021 8:17 AM PHARMACIST APPRENTICE Pulse 76 09/29/2021 8:17 AM PHARMACIST APPRENTICE Temperature 36.7 C (98.1 F) 09/29/2021 8:17 AM PHARMACIST APPRENTICE Respiratory Rate 18 09/29/2021 8:17 AM PHARMACIST APPRENTICE Oxygen Saturation 93% 09/29/2021 8:17 AM PHARMACIST APPRENTICE Inhaled Oxygen Concentration - - Weight 77.4 kg (170 lb 10.2 oz) 09/29/2021 5:00 AM PHARMACIST APPRENTICE Height 165.1 cm (5' 5) 09/27/2021 3:50 PM PHARMACIST APPRENTICE Body Mass Index 28.4 09/27/2021 3:50 PM PHARMACIST APPRENTICE Plan of Treatment Health Maintenance Due Date [...] independently General No Jennifer Cesar, RN Insurance [facility] Advance Directives * Full Code (Latest Code Status on File) Date Activated Date Inactivated Comments 09/27/2021 3:49 PM 09/29/2021 8:59 PM * Full Code Date Activated Date Inactivated Comments 09/19/2021 3:31 PM 09/27/2021 3:47 PM Care Teams City Director Relationship Specialty Start Date End Date Deepak De Leon DO [address] [place] [address] PCP - General INTERNAL MEDICINE 09/19/21
[2025-03-31] MEDS: LACTATED RINGERS 1,000 ML 30 ML IV CONT ×2 (10:35→13:04)
[2025-03-31] MEDS: SCOPOLAMINE 1 MG PATCH 1 PATCH TRANSDERM (10:52)
--- NOTE | 2025-03-31 10:57 | P.HP_ITS ---
H&P: HPI History of Present Illness Date/Time: 03/31/25 10:57 Chief Complaint: This is a very pleasant 59-year-old healthy gentleman with history of prior lumbar [place] [address] Sedrick BENOIT who presents with 4-5 weeks of right- sided acute leg pain and right footdrop. He ultimately underwent an MRI of the lumbar spine which showed a right large paracentral disc herniation at L3-4 which impinges the descending right L4-L5 nerve roots in the right lateral recess. He notes he is in severe pain with shooting pain and down the front of his knee inside of his hooks. He also can not lift his foot very well and this is interfering with his ability to perform daily activities of living. He is now here for a right L3/4 microdiscectomy. Review of Systems Review of Systems: negative [facility] Past Medical History Medical History BMI 30.0-30.9,adult Clotting disorder Degenerative joint disease (DJD) of hip Hip impingement syndrome Pneumonia due to COVID-19 virus COVID-19 Left knee pain Chronic left hip pain Lumbar radiculopathy Benign prostatic hyperplasia without lower urinary tract symptoms Chronic midline low back pain Essential (primary) hypertension Other hyperlipidemia Sleep apnea, unspecified Encounter for preventative adult health care examination Surgical History Surgical History History of back surgery History of cholecystectomy Family History Family History (Updated 03/09/25 @ 09:26 by YON Arrington) Mother No problems noted. Father Heart disease Sibling Patient's sister is in good health Grandparent Carcinoma of colon, Onset Age: 83 Social History Social History Social History: Caffeine- daily Smoking packs per day: 1 Smoking cigarettes per day: 20.0 Years smoked: 20 Smoking pack-years: 20.00 Smoking status: Former smoker Tobacco type: cigarettes Second hand tobacco smoke exposure: No Smoking end date: 09/14/05 Additional smoking assessment comments: Denies nicotine Alcohol intake: current Drinks per week: 3 Alcohol use details: social Substance use: never Substance use type: does not use Do You Feel Safe in your Home?: Yes Lack of Transportation: No Lack of Food: Never True Current Housing: I Have Housing Concerned About Future Housing: No Difficulty Paying Gas/Electric Bills: No Difficulty Paying for Meds: No Currently Unemployed: No Education: High School Diploma/GED Difficulty w/ Childcare or Family Care: No Living arrangements: with family Occupation/Education: occupation Additional occupation/education comments: steel work Gender identity (if verbalized by the patient): Male Spiritual care concerns: No Meds Home Medications and Allergies Home Medications ?Medication ?Instructions ?Recorded ?Confirmed ?Type hydrocodone 5 mg-acetaminophen 325 1 tablet PO Q6H PRN pain #30 tabs 03/20/25 Rx mg tablet Allergies Allergy/AdvReac Type Severity Reaction Status Date / Time No Known Allergies Allergy Mild Verified 03/31/25 10:23 Vital Signs Vital Signs - 24 hr 03/31/25 10:21 Temperature 97.5 F L Pulse Rate 75 Respiratory Rate 18 Blood Pressure 138/83 Pulse Oximetry 99 Oxygen Delivery Room Air Exam Narrative: awake alert MAEW / Assessment and Plan Assessment and plan (1) Lumbar radiculopathy: Code(s): M54.16 - Radiculopathy, lumbar region Status: Acute Assessment and Plan: proceed with right L3/4 microdiscectomy.
--- NOTE | 2025-03-31 10:59 | WPDHPUPDATE1 ---
History and Physical Update Update Date/Time: 03/31/25 10:59 History and Physical has been reviewed, including an updated exam of the patient. There are NO changes in the patient's condition. Risks, benefits, and alternatives have been discussed and questions answered. Patient agrees to proceed with procedure.
--- NOTE | 2025-03-31 11:19 | WPDANESEPPF ---
Anes - Initial Pre Proc Eval Procedure: Operation Date: 03/31/25 12:00 Proposed Procedures p Right L3-4 Microdiscectomy - Boris Boland MD Date/Time: 03/31/25 11:19 Surgeon: Boris Boland MD Pre Op Diagnosis: herniated disc, foot drop Patient Data Age: 59 Gender: M Height: 1.65 m Weight: 83 kg Last Vital Signs Temp 97.5 F L 03/31/25 10:21 Pulse 75 03/31/25 10:21 Resp 18 03/31/25 10:21 BP 138/83 03/31/25 10:21 Pulse Ox 99 03/31/25 10:21 O2 Del Method Room Air 03/31/25 10:21 Allergies Allergy/AdvReac Type Severity Reaction Status Date / Time No Known Allergies Allergy Mild Verified 03/31/25 10:23 Home Medications ?Medication ?Instructions ?Recorded ?Confirmed ?Type hydrocodone 5 mg-acetaminophen 325 1 tablet PO Q6H PRN pain #30 tabs 03/20/25 Rx mg tablet Patient hx anesthesia problems: post op nausea/vomiting Family hx anesthesia problems: none Results Review: All pre-operative results and documents have been reviewed as part of the pre-operative evaluation. [facility] Past Medical History Medical History BMI 30.0-30.9,adult Clotting disorder Degenerative joint disease (DJD) of hip Hip impingement syndrome Pneumonia due to COVID-19 virus COVID-19 Left knee pain Chronic left hip pain Lumbar radiculopathy Benign prostatic hyperplasia without lower urinary tract symptoms Chronic midline low back pain Essential (primary) hypertension Other hyperlipidemia Sleep apnea, unspecified Encounter for preventative adult health care examination Surgical History Surgical History History of back surgery History of cholecystectomy Family History Family History (Updated 03/09/25 @ 09:26 by YON Arrington) Mother No problems noted. Father Heart disease Sibling Patient's sister is in good health Grandparent Carcinoma of colon, Onset Age: 83 Social History Social History Social History: Caffeine- daily Smoking packs per day: 1 Smoking cigarettes per day: 20.0 Years smoked: 20 Smoking pack-years: 20.00 Smoking status: Former smoker Tobacco type: cigarettes Second hand tobacco smoke exposure: No Smoking end date: 09/14/05 Additional smoking assessment comments: Denies nicotine Alcohol intake: current Drinks per week: 3 Alcohol use details: social Substance use: never Substance use type: does not use Do You Feel Safe in your Home?: Yes Lack of Transportation: No Lack of Food: Never True Current Housing: I Have Housing Concerned About Future Housing: No Difficulty Paying Gas/Electric Bills: No Difficulty Paying for Meds: No Currently Unemployed: No Education: High School Diploma/GED Difficulty w/ Childcare or Family Care: No Living arrangements: with family Occupation/Education: occupation Additional occupation/education comments: [employer] work Gender identity (if verbalized by the patient): Male Spiritual care concerns: No Anes - Eval Final PreProcedure Day of Procedure 03/31/25 11:19 Patient weight: obese Heart: regular rate and rhythm Lungs: clear to auscultation Airway: Mallampati scale class II Neurological: alert and oriented Last oral intake: >/= 8 hours ASA classification: III Emergent: no Anesthetic plan: proceed Anesthesia type and monitoring: general ETT and standard monitoring Results Review: All pre-operative results and documents have been reviewed as part of the pre-operative evaluation. Informed Consent: The patient's anesthetic plan and its attendant risks and benefits were discussed with the patient/family/POA. Questions were solicited and answers provided to the satisfaction of the patient/family/POA.
[2025-03-31] MEDS: ceFAZolin 2 GM in SODIUM CHLORIDE 0.9% IV 50 ML 100 ML IVPB (11:28)
[2025-03-31] MEDS: BUPIVACAINE/EPINEPHRINE 0.5% 50 ML VIAL 10 ML INFILTRATE (12:13)
--- NOTE | 2025-03-31 12:54 | W.PM.PROC2 ---
Procedure Note - Detailed Date of Procedure 03/31/25 Pre-op Diagnosis herniated disc, foot drop Post-op Diagnosis Same Procedure Performed right L3/4 microdiscectomy use of operating microscope for microdissection. Surgeon Boris Boland MD Anesthesia General Indications right L3/4 radiculopathy Description of Procedure Once intubated, the patient was positioned prone onto the viktor frame. The L3/4 disc space was confirmed with lateral fluoroscopy and marked. The patient was prepped and draped in the usual fashion. A final timeout was performed. I then made incision down to the spinous process of L3. I Then performed a subpereosteal dissection. I then placed the self retaining retractor. I placed an upgoing curette beneath the lamina of L3 to confirm the L3/4 disc space. I then performed a hemilaminotomy using a high speed drill. I then used a curette to lift up the ligament and resect a majority of it to visualize the thecal sac and nerve. This was carefully retracted and I was able to tease out several large chunks of disc herniation with a nerve hook. The disc space was already open. The nerve was now pulsatile and I did not identify any further disc or compression. The disc space was irrigated. hemostasis was obtained. The wound was closed in layers. Estimated Blood Loss 25 Complications No immediate complications Disposition PACU [facility] Billing Surgery - Charge Forward: Surgery Billing
[2025-03-31] MEDS: oxyCODONE HCL (*CRX) 5 MG TAB IR PO (14:18)
== END 2025-03-31 14:51 | disposition home or self-care (01) ==
PROVIDERS: PCP Internal Medicine; Visit Provider Neurological Surgery
PROC: (CPT 63030; principal; 2025-03-31 12:00)
DX: M51.26 Other intervertebral disc displacement, lumbar region (principal); M21.371 Foot drop, right foot; Z87.891 Personal history of nicotine dependence; E66.9 Obesity, unspecified; Z68.30 Body mass index [BMI] 30.0-30.9, adult
CPT/HCPCS: 63030; 99199; J0690; A9270; J1100; J2003; J2250; J2405; J2704; J3010; J7120

== ENCOUNTER 2025-04-28 08:12 | Outpatient (RCR) | payer OTHER, SELFPAY ==
--- NOTE | 2025-04-28 07:52 | OPREHPOC ---
Outpatient Therapy Plan of Care This is a Multidisciplinary Plan of Care that may contain components documented by all disciplines (PT, OT, and ST.) PT Problem 1 PT Problem #1 Knowledge Deficit PT Goal 1 Goal / Goal Update independent and compliant with HEP Target Visit 6 PT Problem 2 PT Problem #2 Impaired Strength PT Goal 1 Goal / Goal Update 4+/5 or better R ankle DF 5/5 R knee strength 4+/5 bilateral hip flex strength Target Visit 12 PT Problem 3 PT Problem #3 Impaired Range of Motion PT Goal 1 Goal / Goal Update patient to safely reach forward to pick small object up from floor. Target Visit 12 PT Problem 4 PT Problem #4 Impaired Functional Mobility PT Goal 1 Goal / Goal Update oswestry to display 25% or less functional deficits patient to ambulate with normal gait mechanics Target Visit 12
--- NOTE | 2025-04-28 07:52 | PTOPEVAL1 ---
Assessment and note entered by JT File, PT Evaluation Information Assessment Status Evaluation ICD-10 Condition Codes (PT) Radiculopathy, lumbar region M54.16 Onset 03/31/25 Subjective Information patient reports he developed lumbar radiculopathy and R foot drop several months ago. he reports he had surgery, and things are improving, but he continues to have foot drop on the R LE. he reports he also has numbness in the toes, top of the foot, and the ankle. he is not using a cane to walk, but uses a grabber/director learning to get items off the floor. he reports he has not tripped or fallen. he reports he is no longer working. Reported Pain Level Pain Score 3: Self Report Assessment PT Clinical Summary mr. cochran is a pleasant 59 yo man who presents to skilled PT services for evaluation and treatment of R foot drop due to lumbar radiculopathy. he had a microdiscectomy about month ago. he has seen some return of his R ankle mobility, but still lacks R ankle DF strength, R knee strength, and return of normal sensation to the R LE. continued skilled PT is indicated to improve his objective/functional deficits, and progress towards a return to his prior level functional activity performance/quality of life. Plan of Care Interventions Electrical Stimulation,Gait Training,Hot Pack/Cold Pack,Manual Therapy,Neuro Re-education,Patient/ Caregiver Education,Therapeutic Activities, Therapeutic Exercise PT Services Indicated Yes Treatment Frequency and 3x weekly for 12 visits Duration These treatments will address the objective and functional deficits as defined above. The patient will be advanced safely and appropriately in order for the patient to progress towards his/her prior level of function. Additional exercises will be introduced and as well as a comprehensive home exercise program upon discharge, if needed, ?to ensure carryover of functional gains achieved in the clinic. This treatment plan has been reviewed and agreement upon by the patient.
--- NOTE | 2025-05-19 07:52 | OPREHPOC ---
Outpatient Therapy Plan of Care This is a Multidisciplinary Plan of Care that may contain components documented by all disciplines (PT, OT, and ST.) PT Problem 1 PT Problem #1 Knowledge Deficit PT Goal 1 Goal / Goal Update independent and compliant with HEP Target Visit 6 Progress Met PT Problem 2 PT Problem #2 Impaired Strength PT Goal 1 Goal / Goal Update 4+/5 or better R ankle DF. not met 5/5 R knee strength. not met 4+/5 bilateral hip flex strength. not met Target Visit 12 Progress Not Met PT Problem 3 PT Problem #3 Impaired Range of Motion PT Goal 1 Goal / Goal Update patient to safely reach forward to pick small object up from floor. able, but with pain Target Visit 12 Progress Partially Met PT Problem 4 PT Problem #4 Impaired Functional Mobility PT Goal 1 Goal / Goal Update oswestry to display 25% or less functional deficits patient to ambulate with normal gait mechanics Target Visit 12
--- NOTE | 2025-05-19 07:52 | PTOPPROGNS ---
Assessment and note entered by JT File, PT Evaluation Information Assessment Status Evaluation ICD-10 Condition Codes (PT) Radiculopathy, lumbar region M54.16 Onset 03/31/25 Subjective Information patient reports overall he is better. however, he does still struggle with bending forward, lifting, and with lifting up the R foot. he reports he is compliant with his HEP at home. Assessment PT Clinical Summary mr. cochran presents to skilled PT services for his 10th skilled PT visit for lumbar radiculopathy . he presents today with improved lumbar rom, improve R knee strength, and reports of less pain and symptoms. he still lacks full achievement of goals for skilled PT. continued skilled PT is thus indicated to further improve his objective/ functional deficits and achieve his goals for return to prior level functional activity performance/quality of life. Plan of Care Interventions Electrical Stimulation,Gait Training,Hot Pack/Cold Pack,Manual Therapy,Neuro Re-education,Patient/ Caregiver Education,Therapeutic Activities, Therapeutic Exercise PT Services Indicated Yes Treatment Frequency and continue per initial POC Duration These treatments will address the objective and functional deficits as defined above. The patient will be advanced safely and appropriately in order for the patient to progress towards his/her prior level of function. Additional exercises will be introduced and as well as a comprehensive home exercise program upon discharge, if needed, ?to ensure carryover of functional gains achieved in the clinic. This treatment plan has been reviewed and agreement upon by the patient.
--- NOTE | 2025-05-26 10:12 | OPREHPOC ---
Outpatient Therapy Plan of Care This is a Multidisciplinary Plan of Care that may contain components documented by all disciplines (PT, OT, and ST.) PT Problem 1 PT Problem #1 Knowledge Deficit PT Goal 1 Goal / Goal Update independent and compliant with HEP Target Visit 6 Progress Met PT Problem 2 PT Problem #2 Impaired Strength PT Goal 1 Goal / Goal Update 4+/5 or better R ankle DF. not met 5/5 R knee strength. -met 4+/5 bilateral hip flex strength. -met Target Visit 12 Progress Partially Met PT Problem 3 PT Problem #3 Impaired Range of Motion PT Goal 1 Goal / Goal Update patient to safely reach forward to pick small object up from floor. able, but with pain Target Visit 12 Progress Partially Met PT Problem 4 PT Problem #4 Impaired Functional Mobility PT Goal 1 Goal / Goal Update oswestry to display 25% or less functional deficits -not met patient to ambulate with normal gait mechanics - met Target Visit 12 Progress Partially Met
--- NOTE | 2025-05-26 10:12 | PTOPDC ---
Assessment and note entered by Agueda Ray, PT Evaluation Information Assessment Status Discharge ICD-10 Condition Codes (PT) Radiculopathy, lumbar region M54.16 Onset 03/31/25 Subjective Information Denys reports his back is not painful and just stiff this morning. He reports his back is stiff all the time and he does still have some pain in his lower leg that occurs when bending forward to lift objects from the ground. Overall he reports feeling 50% improved compared to before he started therapy and he feels ready to try on his own until he goes back to the doctor on June 16. Reported Pain Level Pain Score 0,3: Self Report Assessment PT Clinical Summary Mr. Noonan has attended 12 skilled PT visits for lumbar radiculopathy. He demonstrates improvements in his LE strength and gait mechanics . While he still has stiffness in the low back and pain with bending/lifting, he feels good enough to keep trying his exercises on his own pending doctor's visit in June. He has partially met therapeutic goals and will be discharged from skilled PT this date. Plan of Care PT Services Indicated No
== END 2025-05-26 14:50 | disposition home or self-care (01) ==
LOC: CHSPT 08:12
PROVIDERS: Visit Provider Neurological Surgery
DX: M54.16 Radiculopathy, lumbar region (principal); Z98.890 Other specified postprocedural states
CPT/HCPCS: 97110; 97112; 97161; 97530

== ENCOUNTER 2025-08-23 00:03 | Day surgery (SDC) | payer OTHER, SELFPAY ==
[2025-08-01 12:54] VITALS: BMI 28.2
[2025-08-23 07:46] VITALS: BP 131/85; PULSE 100; RESP 16; TEMP 36.7; O2SAT 100
[2025-08-23] MEDS: LACTATED RINGERS 1,000 ML 150 ML IV CONT (07:54)
--- NOTE | 2025-08-23 08:26 | P.PNAN_ITS ---
Anes - Initial Pre Proc Eval Procedure: Operation Date: 08/23/25 09:00 Proposed Procedures p Screening Colonoscopy - Pierre Jack MD Date/Time: 08/23/25 08:26 Surgeon: Pierre Jack MD Pre Op Diagnosis: screening Patient Data Age: 60 Gender: M Height: 1.68 m Weight: 77.1 kg Last Vital Signs Temp 36.7 C 08/23/25 07:46 Pulse 100 08/23/25 07:46 Resp 16 08/23/25 07:46 BP 131/85 08/23/25 07:46 Pulse Ox 100 08/23/25 07:46 O2 Del Method Room Air 08/23/25 07:46 Allergies Allergy/AdvReac Type Severity Reaction Status Date / Time No Known Allergies Allergy Mild Verified 08/23/25 07:45 Home Medications ?Medication ?Instructions ?Recorded ?Confirmed ?Type No Home Medications 04/21/25 08/23/25 H istory Patient hx anesthesia problems: none Family hx anesthesia problems: none Results Review: All pre-operative results and documents have been reviewed as part of the pre- operative evaluation. [facility] Past Medical History Medical History BMI 30.0-30.9,adult Clotting disorder Degenerative joint disease (DJD) of hip Hip impingement syndrome Pneumonia due to COVID-19 virus COVID-19 Left knee pain Chronic left hip pain Lumbar radiculopathy Benign prostatic hyperplasia without lower urinary tract symptoms Chronic midline low back pain Essential (primary) hypertension Other hyperlipidemia Sleep apnea, unspecified Encounter for preventative adult health care examination Surgical History Surgical History History of lumbar discectomy History of back surgery History of cholecystectomy Family History Family History Mother No problems noted. Father Heart disease Sibling Patient's sister is in good health Grandparent Carcinoma of colon, Onset Age: 83 Social History Social History Social History: Caffeine- daily Years smoked: 20 Smoking status: Former smoker Tobacco type: cigarettes Second hand tobacco smoke exposure: No Smoking end date: 09/14/05 Additional smoking assessment comments: Denies nicotine Alcohol intake: current Drinks per week: 3 Alcohol use details: social Substance use: never Substance use type: does not use Lack of Transportation: No Lack of Food: Never True Current Housing: I Have Housing Concerned About Future Housing: No Difficulty Paying Gas/Electric Bills: No Difficulty Paying for Meds: No Currently Unemployed: No Education: High School Diploma/GED Difficulty w/ Childcare or Family Care: No Living arrangements: with family Occupation/Education: occupation Additional occupation/education comments: [employer] work Gender identity (if verbalized by the patient): Male Spiritual care concerns: No Anes - Eval Final PreProcedure Day of Procedure 08/23/25 08:26 Patient weight: overweight Heart: regular rate and rhythm Lungs: clear to auscultation Airway: Mallampati scale class II Neurological: alert and oriented Last oral intake: >/= 8 hours ASA classification: III Emergent: no Anesthetic plan: proceed Anesthesia type and monitoring: general GIVS and standard monitoring Results Review: All pre-operative results and documents have been reviewed as part of the pre- operative evaluation. Informed Consent: The patient's anesthetic plan and its attendant risks and benefits were discussed with the patient/family/POA. Questions were solicited and answers provided to the satisfaction of the patient/family/POA.
--- NOTE | 2025-08-23 09:29 | P.HP_ITS ---
H&P: HPI History of Present Illness Date/Time: 08/23/25 09:29 Chief Complaint: Screening colonoscopy Narrative: This is the patient's 2nd screening colonoscopy. There are no GI symptoms and there is no family history of colorectal cancer. Review of Systems Review of Systems: All systems reviewed & are unremarkable except as noted in HPI and below PMFSH Past Medical History Medical History BMI 30.0-30.9,adult Clotting disorder Degenerative joint disease (DJD) of hip Hip impingement syndrome Pneumonia due to COVID-19 virus COVID-19 Left knee pain Chronic left hip pain Lumbar radiculopathy Benign prostatic hyperplasia without lower urinary tract symptoms Chronic midline low back pain Essential (primary) hypertension Other hyperlipidemia Sleep apnea, unspecified Encounter for preventative adult health care examination Surgical History Surgical History History of lumbar discectomy History of back surgery History of cholecystectomy Family History Family History Mother No problems noted. Father Heart disease Sibling Patient's sister is in good health Grandparent Carcinoma of colon, Onset Age: 83 Social History Social History Social History: Caffeine- daily Years smoked: 20 Smoking status: Former smoker Tobacco type: cigarettes Second hand tobacco smoke exposure: No Smoking end date: 09/14/05 Additional smoking assessment comments: Denies nicotine Alcohol intake: current Drinks per week: 3 Alcohol use details: social Substance use: never Substance use type: does not use Lack of Transportation: No Lack of Food: Never True Current Housing: I Have Housing Concerned About Future Housing: No Difficulty Paying Gas/Electric Bills: No Difficulty Paying for Meds: No Currently Unemployed: No Education: High School Diploma/GED Difficulty w/ Childcare or Family Care: No Living arrangements: with family Occupation/Education: occupation Additional occupation/education comments: steel work Gender identity (if verbalized by the patient): Male Spiritual care concerns: No Meds Home Medications and Allergies Home Medications ?Medication ?Instructions ?Recorded ?Confirmed ?Type No Home Medications 04/21/25 08/23/25 H istory Allergies Allergy/AdvReac Type Severity Reaction Status Date / Time No Known Allergies Allergy Mild Verified 08/23/25 07:45 Vital Signs Vital Signs - 24 hr 08/23/25 07:46 Temperature 98.0 F Pulse Rate 100 Respiratory Rate 16 Blood Pressure 131/85 Pulse Oximetry 100 Oxygen Delivery Room Air Exam Const: General: cooperative and healthy appearing Resp: Effort & Inspection: normal respiratory effort and able to speak in complete sentences Auscultation: clear to auscultation bilaterally Cardio: Rate: regular rate Rhythm: regular rhythm GI: Inspection: normal to inspection GI Palp: No No hepatosplenomegaly present Auscultation: normal bowel sounds Rectal Exam: deferred Skin: General skin exam: normal color Psych: Appearance: grossly normal Mental Status: mental status grossly normal Assessment and Plan Assessment and plan (1) Screening for colon cancer: Code(s): Z12.11 - Encounter for screening for malignant neoplasm of colon Status: Acute Assessment and Plan: The patient is deemed a good candidate for the procedure. Consent signed. Will proceed. Prior Studies I have reviewed the following patient records and this information was taken into consideration when formulating the assessment and plan.: previous labs, previous ER visits, previous hospitalizations and previous clinic visits
[2025-08-23] MEDS: SIMETHICONE ORAL SUSPENSION 20 MG/0.3 ML 30 ML BOTTLE 0.6 ML IRRIGATION (09:41)
[2025-08-23 09:54] VITALS: BP 113/73; PULSE 68; RESP 26; O2SAT 99
[2025-08-23 10:04] VITALS: BP 116/78; PULSE 62; RESP 23; O2SAT 100
[2025-08-23 10:14] VITALS: BP 140/84; PULSE 56; RESP 17; O2SAT 100
== END 2025-08-23 10:18 | disposition home or self-care (01) ==
PROVIDERS: PCP Internal Medicine; Referring Provider Nurse Practitioner; Visit Provider Internal Medicine Gastroenterology
PROC: 0DJD8ZZ Inspection of Lower Intestinal Tract, Via Natural or Artificial Opening Endoscopic (ICD-10-PCS; CPT 45378; principal; 2025-08-23 09:00)
DX: Z12.11 Encounter for screening for malignant neoplasm of colon (principal); I10 Essential (primary) hypertension; E78.49 Other hyperlipidemia; N40.0 Benign prostatic hyperplasia without lower urinary tract symptoms; G47.30 Sleep apnea, unspecified; G89.29 Other chronic pain; M25.552 Pain in left hip; M54.50 Low back pain, unspecified; M16.10 Unilateral primary osteoarthritis, unspecified hip; Z98.1 Arthrodesis status; Z90.49 Acquired absence of other specified parts of digestive tract; Z87.891 Personal history of nicotine dependence; Z80.0 Family history of malignant neoplasm of digestive organs; Z82.49 Family history of ischemic heart disease and other diseases of the circulatory system
CPT/HCPCS: 45378; J2704; J7120